=== PATIENT | female | born 1985 | race Caucasian/White ===

== ENCOUNTER 2018-07-22 08:16 | Emergency (ER) | payer MEDICAID ==
[2018-07-22 08:26] VITALS: RESP 18; O2SAT 98; BMI 32.9
--- NOTE | 2018-07-22 08:42 | ED PDOC ---
Arrival/HPI - General Chief Complaint: Trauma Time Seen by Provider: 07/22/18 08:28 Historian: Patient, Other (boyfriend) - History of Present Illness Time/Duration: Prior to Arrival Symptom Onset: Sudden Symptom Course: Unchanged Quality: Aching Severity Level: Mild Associated Symptoms (Text): 07/22/18 08:40 patient reports that her heel got stuck on her stairs and she fell down 2 flights of stairs just prior to arrival. She did hit the right side of her forehead. No loss of consciousness. No syncope dizziness lightheadedness numbness tingling or paresthesias. No weakness. No neck or back pain. No chest pain or dyspnea. No abdominal pain nausea or vomiting. She complains of right thumb pain and left knee pain. She is ambulatory with no difficulty. No other extremity trauma. She appears comfortable and in no distress. Past Medical History - Cardiac Hx Cardiac Disorders: No - Pulmonary Hx Respiratory Disorders: No - Neurological Hx Neurological Disorder: No - HEENT Hx HEENT Disorder: No - Renal Hx Renal Disorder: No - Endocrine/Metabolic Hx Endocrine Disorders: No - Hematological/Oncological Hx Blood Disorders: No - Integumentary Hx Dermatological Disorder: No - Musculoskeletal/Rheumatological Hx Musculoskeletal Disorders: No - Gastrointestinal Hx Gastrointestinal Disorders: No - Genitourinary/Gynecological Hx Genitourinary Disorders: No - Psychiatric Hx Psychophysiologic Disorder: No Hx Substance Use: Yes (marijuana) - Anesthesia Hx Anesthesia: No Family/Social History - Physician Review Nursing Documentation Reviewed: Yes Family/Social History: Unknown Family HX Smoking Status: Light Smoker < 10 Cigarettes Daily Hx Alcohol Use: Yes Frequency of alcohol use: Socially Hx Substance Use: Yes (marijuana) Allergies/Home Meds Allergies/Adverse Reactions: Allergies No Known Allergies Allergy (Verified 12/15/14 08:55) Home Medications: Home Meds Medication Instructions Recorded Confirmed No Known Home Med 07/22/18 07/22/18 Review of Systems - Physician Review All systems were reviewed & negative as marked: Yes - Review of Systems Constitutional: Normal Respiratory: Normal Cardiovascular: Normal Gastrointestinal: Normal Musculoskeletal: absent: Back Pain, Neck Pain Neurological: Normal. absent: Headache, Dizziness, Focal Weakness, Gait Changes, Speech Changes, Disequilibrium, Seizure Physical Exam Vital Signs Temp Pulse Resp BP Pulse Ox 07/22/18 08:16 98.6 F 69 18 115/76 98 Temperature: Afebrile Blood Pressure: Normal Pulse: Regular Respiratory Rate: Normal Appearance: Positive for: Well-Appearing, Non-Toxic, Comfortable Pain Distress: Mild Mental Status: Positive for: Alert and Oriented X 3 - Systems Exam Head: Present: Normocephalic, Contusion, Swelling, Other (mild right forehead swelling and contusion). No: Tenderness, Ecchymosis, Abrasion, Laceration Pupils: Present: PERRL Extroacular Muscles: Present: EOMI Conjunctiva: Present: Normal Ears: Present: NORMAL TM, Normal Canal. No: Erythema, TM Bulging Neck: Present: Normal Range of Motion. No: MIDLINE TENDERNESS, Paraspinal Te nderness Respiratory/Chest: Present: Clear to Auscultation, Good Air Exchange. No: Respiratory Distress, Accessory Muscle Use, Tender to Palpation Cardiovascular: Present: Regular Rate and Rhythm, Normal S1, S2. No: Murmurs Abdomen: No: Tenderness, Distention, Peritoneal Signs Back: Present: Normal Inspection. No: CVA Tenderness, Midline Tenderness, Paraspinal Tenderness Upper Extremity: Present: Normal Inspection, Normal ROM, NORMAL PULSES, Tenderness (mild right dorsal thumb tenderness with no swelling and no skin changes and full range of motion.), Neurovascularly Intact. No: Cyanosis, Edema, Swelling, Erythema, Deformity Lower Extremity: Present: NORMAL PULSES, Normal ROM, Tenderness, Neurovascularly Intact, Other (a left anterior knee superficial abrasion with full range of motion and able to weight-bear with no difficulty. Plus minus anterior tenderness). No: Normal Inspection, Edema, CALF TENDERNESS, Cyanosis, Devyn's Sign, Swelling, Erythema, Deformity Neurological: Present: GCS=15, CN II-XII Intact, Speech Normal, Motor Func Grossly Intact, Normal Sensory Function, Normal Cerebellar Funct, Gait Normal, Memory Normal Skin: Present: Warm, Dry, Normal Color, Abrasion (knee abrasion as above). No: Rashes Medical Decision Making ED Course and Treatment: PROCEDURE: Right Hand Radiographs Signed By: Gilberto Tinoco MD Date Signed 07/22/18931 IMPRESSION: No acute findings. PROCEDURE: Left Knee Radiographs Signed By: Gilberto Tinoco MD Date Signed 07/22/1833 IMPRESSION: Normal radiograph of the left knee. - RAD Interpretation Radiology Orders: 12/19/18 08:36 HAND RIGHT 3 VIEWS [RAD] Stat KNEE LEFT 2 VIEWS (AP & LAT) [RAD] Stat hand and knee show no fracture or dislocation as read by the radiologist. Professional Builder: Radiologist Disposition/Present on Arrival - Present on Arrival Any Indicators Present on Arrival: No History of DVT/PE: No History of Uncontrolled Diabetes: No Urinary Catheter: No History of Decub. Ulcer: No History Surgical Site Infection Following: None - Disposition Have Diagnosis and Disposition been Completed?: Yes Diagnosis: Head contusion, Knee contusion, Hand sprain Disposition: HOME/ ROUTINE Disposition Time: 09:48 Patient Plan: Discharge Patient Problems: Current Active Problems Problem Status Onset Hand sprain Acute Head contusion Acute Knee contusion Acute Condition: GOOD Discharge Instructions (ExitCare): Taking Care of Bruises, Contusion (DC), Minor Head Injury (DC) Additional Instructions: rest ice and elevation. Tylenol or Advil as directed on bottle as needed. Follow-up with PMD. Follow up in ER as needed. Referrals: PCP,NO [Primary Care Provider] - Follow up with primary Forms: [facility] (Polish), WORK NOTE
--- NOTE | 2018-07-22 09:35 | RAD ---
PROCEDURE: Right Hand Radiographs. HISTORY: trauma COMPARISON: None. FINDINGS: BONES: Normal. No fracture. JOINTS: Normal. No osteoarthritic changes. SOFT TISSUES: Normal. OTHER FINDINGS: There is a chronic fracture of the ulnar styloid IMPRESSION: No acute findings
--- NOTE | 2018-07-22 09:37 | RAD ---
Date of service: 07/22/2018 PROCEDURE: Left Knee Radiographs. HISTORY: Pain. COMPARISON: None. FINDINGS: BONES: Normal. No fracture. JOINTS: Normal. No osteoarthritis. JOINT EFFUSION: None. OTHER FINDINGS: None. IMPRESSION: Normal radiographs of the left knee.
[2018-07-22 10:03] VITALS: BP 118/78; PULSE 72; TEMP 98.5
== END 2018-07-22 09:54 | disposition home or self-care (01) ==
LOC: ED 08:16
DX: S80.02XA Contusion of left knee, initial encounter (principal); S00.93XA Contusion of unspecified part of head, initial encounter; S63.91XA Sprain of unspecified part of right wrist and hand, initial encounter; W10.9XXA Fall (on) (from) unspecified stairs and steps, initial encounter; F17.210 Nicotine dependence, cigarettes, uncomplicated